=== PATIENT | male | born 1980 | race Caucasian/White ===

== ENCOUNTER 2019-02-21 13:05 | Emergency (ER) | payer MEDICARE, OTHER ==
[~2019-02-21] VITALS: Ht 177.8 cm; Wt 102.1 kg
--- NOTE | 2019-02-21 13:28 | ED Lower Extremity ---
General Stated Complaint: SWOLLEN FEET Source: patient, family (mom and dad) Exam Limitations: no limitations History of Present Illness Date Seen by Provider: Feb 21, 2019 Time Seen by Provider: 13:14 Initial Comments Patient presents to ER by private conveyance with mom and dad and a wheelchair with chief complaint he is having some increasing neuropathic pain in his bilateral lower extremities and swelling. His mom says swelling gets so bad that the skin will split. He has a history of reflex some but that it dystrophy. He had an [place] event many years ago that have left him dependent on the wheelchair and cane for ambulation. Typically he gets around better but right now he says it hurt too bad to walk on them. He's been treating his pain with gabapentin, topical lidocaine creams, oxycodone, and he did not have enough oxycodone to make of this month. He has an [facility] tomorrow [facility] No history of heart failure or dependent edema. Does not use compression stockings. Allergies and Home Medications Patient Home Medication List Home Medication List Reviewed: Yes Review of Systems Constitutional: No chills, No diaphoresis EENTM: No ear discharge, No ear pain Respiratory: No cough, No phlegm, No short of breath Cardiovascular: No chest pain, No edema Gastrointestinal: No abdominal pain, No nausea, No vomiting Genitourinary: No discharge, No dysuria, No frequency Musculoskeletal: see HPI; No back pain, No joint pain Skin: see HPI Past Vyysdtv-Ixcliv-Lun[place]o Hx Patient Social History Alcohol Use: Denies Use Recreational Drug Use: No Smoking Status: Never a Smoker Physical Exam Vital Signs Capillary Refill : Height, Weight, BMI Height: '" Weight: lbs. oz. kg; BMI Method: General Appearance: WD/WN, mild distress HEENT: PERRL/EOMI, pharynx normal Cardiovascular: normal peripheral pulses, regular rate, rhythm, no edema Respiratory: no respiratory distress, no accessory muscle use Legs: bilateral leg normal inspection, bilateral leg normal range of motion, bilateral leg no evidence of injury, bilateral leg soft tissue tenderness Feet: bilateral foot normal inspection, bilateral foot normal range of motion, bilateral foot no evidence of injury, bilateral foot soft tissue tenderness, bilateral foot other (onychomycoses) Neurologic/Psychiatric: no motor/sensory deficits, alert, oriented x 3, other (anxious affect) Skin: normal color, warm/dry, other (tinea pedis) Progress/Results/Core Measures Progress Progress Note : Time: 13:40 Progress Note We'll provide him with a couple tablets of oxycodone and some diclofenac to trial. He prefer sent to [place] pharmacy or he gets the rest of his medications. Departure Impression Primary Impression: Reflex sympathetic dystrophy of both lower extremities Additional Impressions: Tinea pedis Qualified Codes: B35.3 - Tinea pedis Onychomycosis Disposition: HOME, SELF-CARE Condition: Stable Departure-Patient Inst. Decision time for Depature: 13:42 Referrals: [facility] (PCP) Primary Care Physician IDALMIS AVENDAÑO APRN (Family) Primary Care Physician Patient Instructions: Athlete's Foot, Complex Regional Pain Syndrome, Fungal Nail Infections Add. Discharge Instructions: I sent a prescription for a couple tablets of oxycodone and diclofenac. You may use one tablet of diclofenac up to 3 times a day as needed for pain not to exceed 3 days in a row. Make sure you're drinking plenty of fluids and keep your follow-up appointment with primary care tomorrow. Scripts Oxycodone HCl (Oxycodone HCl) 5 Mg Tablet 5 MG PO Q6H for 1 Day, #4 TAB 0 Refills Prov: NITA JARAMILLO 02/21/19 Diclofenac Potassium (Zipsor) 25 Mg Capsule 25 MG PO Q8H PRN for BREAKTHROUGH PAIN for 3 Days, #9 CAP 0 Refills Prov: NITA JARAMILLO 02/21/19 NITA JARAMILLO Feb 21, 2019 13:28
[2019-02-21] MEDS ORDERED: DICL25CA4 PO (13:44)
[2019-02-21] MEDS ORDERED: OXYC-529 PO (13:45)
[2019-02-21] MEDS: oxyCODONE/APAP 5/325MG (PERCOCET 5) TABLET PO ONE (14:03)
[2019-02-21 14:10] VITALS: BP 189/94
== END 2019-02-21 14:10 | disposition home or self-care (01) ==
LOC: ER FS 13:09
DX: G90.523 Complex regional pain syndrome I of lower limb, bilateral (principal); B35.3 Tinea pedis; B35.1 Tinea unguium
CPT/HCPCS: 99283